=== PATIENT | female | born 1950 | race Caucasian/White ===

== ENCOUNTER 2018-05-17 10:20 | Observation (INO) ==
--- NOTE | 2018-05-17 10:31 | Emergency Department Note ---
Disposition Clinical Impression: Pulmonary embolism and infarction Disposition: Still a Patient Condition: Good General Adult HPI - General Chief complaint: ED Shortness of Breath/Dyspnea Stated complaint: SOB/left side pain/hurts to walk Time Seen by Provider: 05/17/18 10:25 Nursing Notes Reviewed: Yes Vital Signs Reviewed: Yes - History of Present Illness HPI Narrative: 68-year-old female presents emergency department with concern for 24 hour history of left-sided chest pain that is sharp, shortness of breath. Patient reports that she has never felt this way before. She denies any history of coronary artery disease. Reports that she does not have any history of DVT, unilateral leg swelling, recent travel, cancer, trauma, surgeries. Patient denies any history of hypertension, smoking, type 2 diabetes mellitus, hyperlipidemia, but does have a father who of coronary artery disease at age of 62. Patient denies any cough, fever, sputum production. Denies pain radiating anywhere. Has not taken anything to make it better. Pain Scale: 10 - Related Data Home Medications Medication Instructions Recorded Confirmed No Known Home Drugs 05/17/18 05/17/18 Allergies Allergy/AdvReac Type Severity Reaction Status Date / Time No Known Allergies Allergy Verified 05/17/18 10:48 All systems ED: reviewed and negative except as stated. Review of Systems: As Per HPI Constitutional: Denies: fever Cardiovascular: Reports: chest pain. Denies: palpitations Respiratory: Reports: dyspnea. Denies: cough, hemoptysis Gastrointestinal: Denies: abdominal pain, nausea, vomiting Genitourinary: Denies: urgency, dysuria, frequency, hematuria Musculoskeletal: Denies: back pain Integumentary: Denies: rash Neurological: Denies: numbness, paresthesias Past Medical History - Past Medical History Medical history: Reports: no medical history Psychiatric history: Reports: no psych history - Social History Smoking Status: Former smoker Smokeless Tobacco Status: No Alcohol use: Reports: none Drug use: Reports: none Physical Exam - General Limitations: no limitations General appearance: alert, in no apparent distress - Head Head exam: normocephalic - Eye Eye exam: Present: EOMI - ENT ENT exam: mucous membranes moist - Neck Neck exam: Present: trachea midline - Chest Chest inspection: Present: symmetric chest wall rise - Respiratory Respiratory exam: Present: normal lung sounds bilaterally. Absent: respiratory distress, accessory muscle use - Cardiovascular Cardiovascular exam: Present: regular rate, normal rhythm, normal heart sounds - Abdominal Exam Abdominal exam: Present: soft, Non-Tender. Absent: distention, guarding, rebound, rigidity - Extremities Exam Extremities exam: Present: normal capillary refill. Absent: pedal edema, calf tenderness - Back Exam Back exam: Present: full ROM - Neurological Exam Neurological exam: Present: alert, oriented X3 - Psychiatric Psychiatric exam: Present: normal affect, normal mood - Skin Skin exam: Present: warm, dry, intact, normal color. Absent: rash Course Vital Signs Temperature 98.0 F 05/17/18 10:24 Pulse Rate 98 05/17/18 10:24 Respiratory Rate 20 05/17/18 10:24 Blood Pressure 129/75 05/17/18 10:24 O2 Sat by Pulse Oximetry 93 05/17/18 10:24 Temperature 98.0 F 05/17/18 10:47 Pulse Rate 90 05/17/18 16:48 Respiratory Rate 22 05/17/18 16:48 Blood Pressure 118/66 05/17/18 16:48 O2 Sat by Pulse Oximetry 100 05/17/18 16:48 Oxygen Delivery Oxygen Delivery Nasal Cannula Medical Decision Making - [facility] Narrative Medical decision making narrative: 60-year-old female presents emergency department with concern for left-sided pleuritic chest pain for 24 hours. Patient is medically stable not in acute distress however, she does appear uncomfortable. Exam. Patient was given pain medication. EKG did not reveal any ischemic ST changes. Troponin was negative. BNP was not elevated. Kidney function was good. Chest revealed left basilar airspace disease and small pleural effusion. Obtain a CTA as patient had elevated d-dimer with pleuritic chest pain. This reveals left lower lobe pulmonary emboli with findings of left lower lobe infarct and small left pleural effusion. No evidence of right heart strain at this time as patient hemodynamically stable, troponins negative, BNP is within normal limits. Patient has no history of bleeding disorders. We started her on heparin. Discussed the findings with her at bedside. She was still hemodynamically stable. She requests more pain medication. We have provided this. So the hospitalist who agrees to accept patient for admission. Patient not in any acute distress at the time. Chest X-Ray 05/17/18 10:29 IMPRESSION: Left basilar airspace disease and small pleural effusion which may be secondary to pneumonia. D/ / Te Buckley MD / Te Buckley MD Interpreting Provider: Te Buckley MD Chest CTA 05/17/18 13:25 IMPRESSION: Left lower lobe pulmonary emboli with findings of left lower lobe infarct and small left pleural effusion D/ / Fabio Mariscal MD / Fabio Mariscal MD Interpreting Provider: Fabio Mariscal MD - Lab Data Result diagrams: 05/17/18 16:54 05/17/18 10:46 Lab Results 05/17/18 05/17/18 05/17/18 Range/Units 10:46 10:46 10:46 WBC 11.0 (4.3-11.1) K/mcL RBC 4.13 (3.82-4.97) M/mcL Hgb 11.9 (11.5-15.4) g/dL Hct 36.9 (35.3-44.9) % MCV 89.3 (83.0-100.0) fL MCH 28.8 (28.0-33.3) pg MCHC 32.2 (31.6-35.5) g/dL RDW 13.8 (11.5-14.5) % Plt Count 144 (140-400) K/mcL MPV 10.0 (9.4-12.4) fL Immature Gran % 0.4 (0-4) % Seg Neutrophils % 75.3 % Lymphocytes % 13.1 % Monocytes % 10.8 % Eosinophils % 0.1 % Basophils % 0.3 % Neutrophils # 8.3 (1.6-8.9) K/mcL Lymphocytes # 1.4 (0.6-4.6) K/mcL Monocytes # 1.2 (0.0-1.3) K/mcL Eosinophils # 0.0 (0.0-0.6) K/mcL Basophils # 0.0 (0.0-0.2) K/mcL PT (9.4-12.1) Seconds INR D-Dimer (0-500) ng/mLFEU Heparin Anti-Xa, Unfract (0.30-0.70) IU/mL Sodium 137 (136-145) mEq/L Potassium 3.7 (3.5-5.1) mEq/L Chloride 105 (98-107) mEq/L Carbon Dioxide 25 (23-29) mEq/L BUN 20 (8-23) mg/dL Creatinine 1.01 (0.60-1.20) mg/dL Est GFR ( Amer) > 60 (> 60) Est GFR (Non-Af Amer) 55 L (> 60) BUN/Creatinine Ratio 20 (6-26) Glucose 125 H (70-105) mg/dL Calculated Osmolality 288 (280-300) Calcium 9.6 (8.6-10.3) mg/dL Troponin I < 0.03 (< 0.04) ng/mL B-Natriuretic Peptide 22 (Less than 100) pg/mL 05/17/18 05/17/18 05/17/18 Range/Units 10:46 16:54 16:54 WBC 11.1 (4.3-11.1) K/mcL RBC 4.16 (3.82-4.97) M/mcL Hgb 12.1 (11.5-15.4) g/dL Hct 37.5 (35.3-44.9) % MCV 90.1 (83.0-100.0) fL MCH 29.1 (28.0-33.3) pg MCHC 32.3 (31.6-35.5) g/dL RDW 13.6 (11.5-14.5) % Plt Count 149 (140-400) K/mcL MPV 10.2 (9.4-12.4) fL Immature Gran % (0-4) % Seg Neutrophils % % Lymphocytes % % Monocytes % % Eosinophils % % Basophils % % Neutrophils # (1.6-8.9) K/mcL Lymphocytes # (0.6-4.6) K/mcL Monocytes # (0.0-1.3) K/mcL Eosinophils # (0.0-0.6) K/mcL Basophils # (0.0-0.2) K/mcL PT 12.3 H (9.4-12.1) Seconds INR 1.1 D-Dimer 2103 H (0-500) ng/mLFEU Heparin Anti-Xa, Unfract 0.00 L (0.30-0.70) IU/mL Sodium (136-145) mEq/L Potassium (3.5-5.1) mEq/L Chloride (98-107) mEq/L Carbon Dioxide (23-29) mEq/L BUN (8-23) mg/dL Creatinine (0.60-1.20) mg/dL Est GFR ( Amer) (> 60) Est GFR (Non-Af Amer) (> 60) BUN/Creatinine Ratio (6-26) Glucose (70-105) mg/dL Calculated Osmolality (280-300) Calcium (8.6-10.3) mg/dL Troponin I (< 0.04) ng/mL B-Natriuretic Peptide (Less than 100) pg/mL - EKG Data EKG #1 EKG attestation: Yes I reviewed and interpreted this EKG. EKG results narrative: 10:43 Heart rate 90 bpm, appearing 148 ms, QRS duration 86 segs, QT [address] changes on this EKG.
[2018-05-17] MEDS ORDERED: Aspirin 81 MG TAB.CHEW PO STA (10:42)
[2018-05-17] MEDS ORDERED: *HR* FentaNYL (PF) 100 MCG/2 ML VIAL IVP ONE ×2 (10:42→13:49)
[2018-05-17 11:02] LABS: Basophils % 0.3 %; Eosinophils % 0.1 %; Hematocrit 36.9 % (35.3-44.9); Hemoglobin 11.9 g/dL (11.5-15.4); Immature Granulocytes % 0.4 % (0-4); Lymphocytes # 1.4 K/mcL (0.6-4.6); Lymphocytes % 13.1 %; Mean Corpuscular HGB Conc 32.2 g/dL (31.6-35.5); Mean Corpuscular Hemoglobin 28.8 pg (28.0-33.3); Mean Corpuscular Volume 89.3 fL (83.0-100.0); Monocytes # 1.2 K/mcL (0.0-1.3); Monocytes % 10.8 %; Neutrophils # 8.3 K/mcL (1.6-8.9); Platelet Count 144 K/mcL (140-400); Red Blood Count 4.13 M/mcL (3.82-4.97); Red Cell Distribution Width 13.8 % (11.5-14.5); Segmented Neutrophils % 75.3 %
[2018-05-17 11:23] LABS: BUN/Creatinine Ratio 20 (6-26); Blood Urea Nitrogen 20 mg/dL (8-23); Calcium 9.6 mg/dL (8.6-10.3); Carbon Dioxide 25 mEq/L (23-29); Chloride 105 mEq/L (98-107); Glucose 125 mg/dL (70-105); Osmolality,Calculated 288 (280-300); Potassium 3.7 mEq/L (3.5-5.1); Sodium 137 mEq/L (136-145); eGFR For Non-African Americans 55 (> 60)
[2018-05-17 11:24] LABS: Troponin I < 0.03 ng/mL (< 0.04)
[2018-05-17] MEDS ORDERED: Isovue-370 500 ML INFUS..BTL IV ONE (13:25)
--- NOTE | 2018-05-17 13:51 | Emergency Department Note ---
Disposition Clinical Impression: Chest wall pain, Pulmonary embolism and infarction Disposition: Admitted As Inpatient General Adult HPI - General Chief complaint: ED Shortness of Breath/Dyspnea Stated complaint: SOB/left side pain/hurts to walk Time Seen by Provider: 05/17/18 10:25 Source: patient Limitations: no limitations - History of Present Illness Pain Scale: 8 - Related Data Previous Rx's Medication Instructions Recorded Cyclobenzaprine [Flexeril] 10 mg PO HS PRN #10 tablet 10/17/16 HYDROcodone/Acet 5/325 mg [[place] 1 tab PO Q6H PRN #10 tab 10/17/16 5-325 mg] Naproxen [Naprosyn] 500 mg PO BID PRN #20 tablet 10/17/16 Allergies Allergy/AdvReac Type Severity Reaction Status Date / Time No Known Allergies Allergy Verified 05/17/18 10:48 Past Medical History - Past Medical History Medical history: Reports: no medical history Psychiatric history: Reports: no psych history 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 - Social History Smoking Status: Former smoker Smokeless Tobacco Status: No Alcohol use: Reports: none Drug use: Reports: none Physical Exam - General Limitations: no limitations General appearance: alert, in no apparent distress Course Vital Signs Temperature 98.0 F 05/17/18 10:24 Pulse Rate 98 05/17/18 10:24 Respiratory Rate 20 05/17/18 10:24 Blood Pressure 129/75 05/17/18 10:24 O2 Sat by Pulse Oximetry 93 05/17/18 10:24 Temperature 98.0 F 05/17/18 10:47 Pulse Rate 90 05/17/18 16:48 Respiratory Rate 22 05/17/18 16:48 Blood Pressure 118/66 05/17/18 16:48 O2 Sat by Pulse Oximetry 100 05/17/18 16:48 Oxygen Delivery Oxygen Delivery Nasal Cannula Medical Decision Making - Medical Records Medical records reviewed: Yes I reviewed the patient's medical records. - Lab Data Lab results reviewed: Yes I reviewed the patient's lab results. Result diagrams: 05/17/18 16:54 05/17/18 10:46 Lab Results 05/17/18 05/17/18 05/17/18 Range/Units 10:46 10:46 10:46 WBC 11.0 (4.3-11.1) K/mcL RBC 4.13 (3.82-4.97) M/mcL Hgb 11.9 (11.5-15.4) g/dL Hct 36.9 (35.3-44.9) % MCV 89.3 (83.0-100.0) fL MCH 28.8 (28.0-33.3) pg MCHC 32.2 (31.6-35.5) g/dL RDW 13.8 (11.5-14.5) % Plt Count 144 (140-400) K/mcL MPV 10.0 (9.4-12.4) fL Immature Gran % 0.4 (0-4) % Seg Neutrophils % 75.3 % Lymphocytes % 13.1 % Monocytes % 10.8 % Eosinophils % 0.1 % Basophils % 0.3 % Neutrophils # 8.3 (1.6-8.9) K/mcL Lymphocytes # 1.4 (0.6-4.6) K/mcL Monocytes # 1.2 (0.0-1.3) K/mcL Eosinophils # 0.0 (0.0-0.6) K/mcL Basophils # 0.0 (0.0-0.2) K/mcL PT (9.4-12.1) Seconds INR D-Dimer (0-500) ng/mLFEU Heparin Anti-Xa, Unfract (0.30-0.70) IU/mL Sodium 137 (136-145) mEq/L Potassium 3.7 (3.5-5.1) mEq/L Chloride 105 (98-107) mEq/L Carbon Dioxide 25 (23-29) mEq/L BUN 20 (8-23) mg/dL Creatinine 1.01 (0.60-1.20) mg/dL Est GFR ( Amer) > 60 (> 60) Est GFR (Non-Af Amer) 55 L (> 60) BUN/Creatinine Ratio 20 (6-26) Glucose 125 H (70-105) mg/dL Calculated Osmolality 288 (280-300) Calcium 9.6 (8.6-10.3) mg/dL Troponin I < 0.03 (< 0.04) ng/mL B-Natriuretic Peptide 22 (Less than 100) pg/mL 05/17/18 05/17/18 05/17/18 Range/Units 10:46 16:54 16:54 WBC 11.1 (4.3-11.1) K/mcL RBC 4.16 (3.82-4.97) M/mcL Hgb 12.1 (11.5-15.4) g/dL Hct 37.5 (35.3-44.9) % MCV 90.1 (83.0-100.0) fL MCH 29.1 (28.0-33.3) pg MCHC 32.3 (31.6-35.5) g/dL RDW 13.6 (11.5-14.5) % Plt Count 149 (140-400) K/mcL MPV 10.2 (9.4-12.4) fL Immature Gran % (0-4) % Seg Neutrophils % % Lymphocytes % % Monocytes % % Eosinophils % % Basophils % % Neutrophils # (1.6-8.9) K/mcL Lymphocytes # (0.6-4.6) K/mcL Monocytes # (0.0-1.3) K/mcL Eosinophils # (0.0-0.6) K/mcL Basophils # (0.0-0.2) K/mcL PT 12.3 H (9.4-12.1) Seconds INR 1.1 D-Dimer 2103 H (0-500) ng/mLFEU Heparin Anti-Xa, Unfract 0.00 L (0.30-0.70) IU/mL Sodium (136-145) mEq/L Potassium (3.5-5.1) mEq/L Chloride (98-107) mEq/L Carbon Dioxide (23-29) mEq/L BUN (8-23) mg/dL Creatinine (0.60-1.20) mg/dL Est GFR ( Amer) (> 60) Est GFR (Non-Af Amer) (> 60) BUN/Creatinine Ratio (6-26) Glucose (70-105) mg/dL Calculated Osmolality (280-300) Calcium (8.6-10.3) mg/dL Troponin I (< 0.04) ng/mL B-Natriuretic Peptide (Less than 100) pg/mL - Radiology Data Radiology results reviewed: Yes I reviewed the patient's radiology results. Critical Care Time Critical Care Time: No Attestation Statement - Attestation Attestation: I examined this patient and my medical decision-making was reviewed with the Resident Physician. I agree with the documented findings, disposition and treatment plan as described except to the extent set forth below. 68-year-old female presented to [facility] for left lateral chest pain. She denies any history of coronary disease. No lung history. She denies any recent long travels in a car plane. No history of pulmonary embolus. Pain is isolated to the left chest wall in the left lateral ribs region. No fevers. No lower leg pain or swelling. Her d-dimer was elevated. We have ordered a CTA chest. Remaining lab work is unremarkable. EKG showed no acute findings. Disposition pending based on her CTA report.
--- NOTE | 2018-05-17 14:18 | Electrocardiograph Report ---
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
[2018-05-17] MEDS ORDERED: *HR* HYDROmorphone (PF) 1 MG/ML SYRINGE IVP ONE (16:26)
[2018-05-17] MEDS ORDERED: *HR* Heparin 5,000 UNIT/ML VIAL IVP PRN ×2 (16:27)
[2018-05-17] MEDS ORDERED: *HR* Heparin 5,000 UNIT/ML VIAL IVP ONE (16:27)
[2018-05-17] MEDS ORDERED: Heparin 25,000 UNIT/500 ML D5W 25,000 UNIT/500 ML BAG IVC SCH (16:30)
[2018-05-17] MEDS ORDERED: Naloxone 0.4 MG/ML INJ IVP PRN (16:51)
[2018-05-17 17:06] LABS: Hematocrit 37.5 % (35.3-44.9); Hemoglobin 12.1 g/dL (11.5-15.4); Mean Corpuscular HGB Conc 32.3 g/dL (31.6-35.5); Mean Corpuscular Hemoglobin 29.1 pg (28.0-33.3); Mean Corpuscular Volume 90.1 fL (83.0-100.0); Mean Platelet Volume 10.2 fL (9.4-12.4); Platelet Count 149 K/mcL (140-400); Red Blood Count 4.16 M/mcL (3.82-4.97); Red Cell Distribution Width 13.6 % (11.5-14.5)
[2018-05-17 17:18] LABS: INR 1.1; Prothrombin Time 12.3 Seconds (9.4-12.1)
--- NOTE | 2018-05-17 17:39 | Internal Med History&Physical ---
Date of Encounter: 05/17/18 Time of Encounter: 17:00 Internal Medicine - H&P: HPI Chief complaint: left sided chest pain and shortness of breath History of present illness: Ms. Tee is a 68 year old female with no significant past medical history presenting with sudden onset left sided chest pain starting about 2 nights ago in bed. When she woke up the next day, she says she was very short of breath and had worsening left sided pain. She also complains of chills. Denies any calf pain. Denies any recent travel. Denies any fevers or any other acute symptoms In the ER, a ct chest showed a left sided PE and small left sided pleural effusion and airspace disease. She is being admitted for further management Past Med Surg Social Fam HX - Past Medical History Medical history: no medical history Psychiatric history: no psych history - Past Surgical History Additional surgical history: right hip replacement - Social History Smoking Status: Former smoker Smokeless Tobacco Status: No Alcohol use: none Drug use: none Internal Medicine - H&P: Meds No Known Home Drugs 05/17/18 [History] Allergy/AdvReac Type Severity Reaction Status Date / Time No Known Allergies Allergy Verified 05/17/18 10:48 All Systems PM: A 10-system review of systems was performed and is negative for pertinent findings except as documented above in the HPI. - Constitutional Constitutional: chills, no fever(s), no night sweats - EENT Eyes: no change in vision, no discharge, no pain, no photophobia Ears: no ear discharge, no ear pain, no tinnitus Nose, mouth and throat: no dysphagia, no nasal discharge, no neck pain, no sore throat - Cardiovascular Cardiovascular ROS IM: chest pain, palpitations, no diaphoresis, no dyspnea, no lightheadedness, no syncope - Respiratory Respiratory: no cough, no dyspnea, no wheezing, no excessive phlegm production - Gastrointestinal Gastrointestinal: no abdominal pain, no diarrhea, no hematemesis, no hematochezia, no melena, no nausea, no vomiting - Genitourinary Genitourinary: no change in urinary stream, no dysuria, no flank pain, no hematuria - Musculoskeletal Musculoskeletal ROS IM: no numbness, no tingling - Integumentary Integumentary IM: no rash, no unusual bruising - Neurological Neurological ROS: no confusion, no convulsions, no focal weakness, no numbness, no tingling, no tremor(s) - Hematologic/Lymphatic Hematologic/Lymphatic: no easy bruising - Constitutional Vitals: Temp Pulse Resp BP Pulse Ox 98.0 F 90 22 118/66 100 05/17/18 10:47 05/17/18 16:48 05/17/18 16:48 05/17/18 16:48 05/17/18 16:48 Exam: NAD - Head Head exam: Present: atraumatic, normocephalic - Eye Eye exam: Present: PERRL, conjuntiva pink, sclera anicteric Pupils: Present: PERRL - Neck Neck exam general surgery: Present: supple, trachea midline. Absent: lymphadenopathy - Respiratory Respiratory exam: Present: CTAB. Absent: accessory muscle use, rales, rhonchi, wheezes - Cardiovascular Cardiovascular exam: Present: RRR, +S1, +S2. Absent: diastolic murmur, gallop, rubs, systolic murmur - GI/Abdominal GI/Abdominal exam: Present: normal bowel sounds, soft, no peritoneal signs. Absent: distended, tenderness - Extremities Exam Extremities exam: Present: warm, radial pulses palpable and symmetrical. Absent: calf tenderness, cyanotic, pedal edema - Neurological Exam Neurological exam: Present: CN II-XII intact, oriented X3, no focal deficits. Absent: pronater drift, facial droop, speech deficit - Skin Skin exam: Present: dry, intact Internal Med - H&P Results - Labs CBC & Chem 7: 05/17/18 16:54 05/17/18 10:46 Labs: Short CBC 05/17/18 05/17/18 Range/Units 10:46 16:54 WBC 11.0 11.1 (4.3-11.1) K/mcL Hgb 11.9 12.1 (11.5-15.4) g/dL Hct 36.9 37.5 (35.3-44.9) % Plt Count 144 149 (140-400) K/mcL Neutrophils # 8.3 (1.6-8.9) K/mcL BMP 05/17/18 10:46 Sodium 137 Potassium 3.7 Chloride 105 Carbon Dioxide 25 BUN 20 Creatinine 1.01 Glucose 125 H Calcium 9.6 Cardiac Enzymes 05/17/18 Range/Units 10:46 Troponin I < 0.03 (< 0.04) ng/mL - Impressions ITS Impressions Chest X-Ray 05/17/18 10:29 IMPRESSION: Left basilar airspace disease and small pleural effusion which may be secondary to pneumonia. D/ / Te Buckley MD / Te Buckley MD Interpreting Provider: Te Buckley MD Chest CTA 05/17/18 13:25 IMPRESSION: Left lower lobe pulmonary emboli with findings of left lower lobe infarct and small left pleural effusion D/ / Fabio Mariscal MD / Fabio Mariscal MD Interpreting Provider: Fabio Mariscal MD - Assessment and plan (1) Pulmonary embolism and infarction Current Visit: Yes Status: Acute Assessment and plan: Pt comes in with shortness of breath and left sided chest pain CT chest shows left sided pulmonary emboli. will start on heparin drip and transition to xarelto (2) Community acquired bacterial pneumonia Current Visit: Yes Status: Acute Assessment and plan: CT chest shows small pleural effusion and left lung airspace disease Will start on IV levaquin. Obtain blood cultures and urine strep and legionella antigen (3) DVT prophylaxis Current Visit: Yes Status: Acute Assessment and plan: On heparin drip - Time Spent With Patient Total time spent is greater than 50% in coordination of care (as documented) at patient's floor/unit and/or counseling patient:
[2018-05-17] MEDS ORDERED: Levofloxacin 750 MG/150 ML 750 MG/150 ML BAG IVPB SCH (18:00)
[2018-05-17] MEDS: *HR* HYDROcodone/Acet 5/325 mg TABLET PO PRN (19:01)
[2018-05-17] MEDS: *HR* Rivaroxaban 15 MG TABLET PO SCH (21:04)
[2018-05-18] MEDS ORDERED: *HR* OxyCODONE Immed Rel 5 MG TABLET PO PRN (00:01)
[2018-05-18] MEDS ORDERED: Acetaminophen 325 MG TABLET PO PRN (00:01)
[2018-05-18 04:08] LABS: Hematocrit 34.2 % (35.3-44.9); Hemoglobin 10.9 g/dL (11.5-15.4); Mean Corpuscular HGB Conc 31.9 g/dL (31.6-35.5); Mean Corpuscular Hemoglobin 28.5 pg (28.0-33.3); Mean Corpuscular Volume 89.3 fL (83.0-100.0); Mean Platelet Volume 10.6 fL (9.4-12.4); Platelet Count 151 K/mcL (140-400); Red Blood Count 3.83 M/mcL (3.82-4.97); Red Cell Distribution Width 13.6 % (11.5-14.5)
[2018-05-18 04:24] LABS: BUN/Creatinine Ratio 18 (6-26); Blood Urea Nitrogen 19 mg/dL (8-23); Calcium 9.6 mg/dL (8.6-10.3); Carbon Dioxide 23 mEq/L (23-29); Chloride 104 mEq/L (98-107); Glucose 117 mg/dL (70-105); Osmolality,Calculated 285 (280-300); Phosphorous 2.4 mg/dL (2.7-4.5); Potassium 4.3 mEq/L (3.5-5.1); Sodium 136 mEq/L (136-145); eGFR For Non-African Americans 53 (> 60)
[2018-05-18] MEDS: *HR* HYDROcodone/Acet 5/325 mg TABLET PO PRN ×2 (05:11→12:31)
[2018-05-18] MEDS: *HR* Rivaroxaban 15 MG TABLET PO SCH (08:29)
--- NOTE | 2018-05-18 08:50 | Discharge Summary ---
Orders not resulted at time of discharge: Pending orders 05/17/18 17:41 Factor V Leiden Routine 05/17/18 17:49 Legionella Antigen [RM] Routine Streptococcal pneumoniae urin antigen [S. Pneumoniae Antigen] [RM] Routine 05/17/18 18:59 Culture,Blood [] Routine Date of Encounter: 05/18/18 Time of Encounter: 08:45 - Discharge Diagnosis (1) Pulmonary embolism and infarction Priority: Primary Status: Acute Assessment and Plan: 68 year old female with no significant past medical history presenting with sudden onset left sided chest pain starting about 2 nights ago in bed. When she woke up the next day, she says she was very short of breath and had worsening left sided pain. She also complains of chills. Denies any calf pain. Denies any recent travel. Denies any fevers or any other acute symptoms In the ER, a ct chest showed a left sided PE and small left sided pleural effusion and airspace disease She was assessed with acute PE with CT chest showing left sided pulmonary emboli . She was started on a heparin drip and transitioned to xarelto po. She was given a one month supply of xarelto and will follow up with her PCP. She was counseled on the need for at least 3 months of anticoagulation. She also had a pneumonia and was treated with levaquin. She was discharged in a stable condition (2) Community acquired bacterial pneumonia Priority: Primary Status: Acute (3) DVT prophylaxis Priority: Primary Status: Acute Hospital course: Ms. Tee is a 68 year old female - Time Spent with Patient Total time spent providing and/or coordinating discharge services: - Discharge Medications Prescriptions: HYDROcodone/Acet 5/325 mg [[place] 5-325 mg] 1 tab PO Q6H PRN 4 Days #12 tablet PRN Reason: Chest Pain levoFLOXacin [Levaquin] 750 mg PO DAILY #2 tablet Rivaroxaban [Xarelto] 1 dose PO AD 30 Days #1 pack Home Medications: HYDROcodone/Acet 5/325 mg [[place] 5-325 mg] 1 tab PO Q6H PRN 4 Days #12 tablet 05/18/18 [Rx] Rivaroxaban [Xarelto] 1 dose PO AD 30 Days #1 pack 05/18/18 [Rx] levoFLOXacin [Levaquin] 750 mg PO DAILY #2 tablet 05/18/18 [Rx] Allergies/Adverse Reactions: Allergy/AdvReac Type Severity Reaction Status Date / Time No Known Allergies Allergy Verified 05/17/18 10:48 Date of admission: 05/17/18 16:58 Primary care physician: Ole Pollard - Constitutional Vitals: Temp Pulse Resp BP Pulse Ox 98.6 F 83 17 102/56 96 05/18/18 07:44 05/18/18 07:44 05/18/18 07:44 05/18/18 07:44 05/18/18 07:44 Exam: Gen - Awake, alert, oriented x 3, no acute distress HEENT - NCAT, PERRLA, EOMI, hearing grossly intact, oropharynx benign CV - RRR, normal S1 and S2, no M/R/G, no BLE edema Resp - Normal WOB, CTAB, no W/R/R GI - Soft, NT/ND, no masses, normal bowel sounds, Skin - Warm, dry, no rashes/lesions/ulcers Psych - Normal mood and affect, no depression or anxiety - Patient Status Disposition: Home, Self-Care Condition: Good - Discharge Instructions Instructions: Pulmonary Embolism (DC), Pneumonia (DC) Follow Up With: Marley Guadalupe [employer] [Advanced Practice Nurse] - 05/22/18 3:10 pm (patient needs to be there a half hour early with insurance card )
[2018-05-18 11:53] VITALS: BP 122/62
[2018-05-22 00:49] LABS: FACV Specimen WHOLE BLOOD
[2018-05-22 14:24] LABS: Fac V Leiden R506Q Mut Result NEGATIVE
== END 2018-05-18 13:59 | disposition home or self-care (01) ==
LOC: EMEROOARM 10:20 → 2NENU 10:20
PROVIDERS: ADMIT Internal Medicine; ATTEND Internal Medicine

== ENCOUNTER 2019-08-31 18:24 | Inpatient (IN) ==
[2019-08-31 19:55] LABS: Basophils % 0.4 %; Eosinophils # 0.2 K/mcL (0.0-0.6); Eosinophils % 2.2 %; Hemoglobin 11.4 g/dL (11.5-15.4); Immature Granulocytes % 0.4 % (0-4); Lymphocytes # 1.3 K/mcL (0.6-4.6); Lymphocytes % 19.7 %; Mean Corpuscular HGB Conc 31.7 g/dL (31.6-35.5); Mean Corpuscular Hemoglobin 28.5 pg (28.0-33.3); Monocytes # 0.6 K/mcL (0.0-1.3); Monocytes % 8.5 %; Neutrophils # 4.6 K/mcL (1.6-8.9); Platelet Count 288 K/mcL (140-400); Red Cell Distribution Width 13.7 % (11.5-14.5); Segmented Neutrophils % 68.8 %; White Blood Count 6.7 K/mcL (4.3-11.1)
[2019-08-31 20:02] LABS: Prothrombin Time 11.2 Seconds (9.4-12.1)
[2019-08-31 20:04] LABS: Activated Partial Thrombo Time 34.3 Seconds (26.0-36.0)
[2019-08-31] MEDS ORDERED: Isovue-370 500 ML BOTTLE IVP ONE (20:36)
[2019-08-31] MEDS ORDERED: 0.9 % Sodium Chloride 1,000 ML IVC ONE (23:31)
[2019-08-31] MEDS ORDERED: *HR* Enoxaparin 80 MG/0.8 ML SYRINGE SQ STA (23:47)
[2019-09-01] MEDS ORDERED: Naloxone 0.4 MG/ML INJ IVP PRN (02:03)
[2019-09-01] MEDS ORDERED: Melatonin 3 MG TABLET PO PRN (03:01)
[2019-09-01 04:51] LABS: Hematocrit 33.5 % (35.3-44.9); Hemoglobin 10.6 g/dL (11.5-15.4); Mean Corpuscular HGB Conc 31.6 g/dL (31.6-35.5); Mean Corpuscular Hemoglobin 28.5 pg (28.0-33.3); Mean Corpuscular Volume 90.1 fL (83.0-100.0); Mean Platelet Volume 9.3 fL (9.4-12.4); Platelet Count 296 K/mcL (140-400); Red Blood Count 3.72 M/mcL (3.82-4.97); Red Cell Distribution Width 13.9 % (11.5-14.5); White Blood Count 6.9 K/mcL (4.3-11.1)
[2019-09-01 05:11] LABS: BUN/Creatinine Ratio 14 (6-26); Blood Urea Nitrogen 14 mg/dL (8-23); Calcium 9.3 mg/dL (8.6-10.3); Carbon Dioxide 26 mEq/L (23-29); Chloride 107 mEq/L (98-107); Glucose 95 mg/dL (70-105); Osmolality,Calculated 284 (280-300); Phosphorous 2.9 mg/dL (2.7-4.5); Sodium 137 mEq/L (136-145); eGFR For African Americans > 60 (> 60); eGFR For Non-African Americans 55 (> 60)
[2019-09-01] MEDS ORDERED: Ipratropium/Albuterol Neb 3 ML IH PRN (07:44)
[2019-09-01] MEDS: *HR* Enoxaparin 100 MG/ML SYRINGE SQ SCH ×2 (09:42→21:05)
[2019-09-01] MEDS: *HR* HYDROcodone/Acet 5/325 mg TABLET PO PRN ×2 (09:42→21:04)
[2019-09-01] MEDS ORDERED: Warfarin perPT PO SCH (18:00)
[2019-09-01] MEDS ORDERED: *HR* Warfarin 5 MG TABLET PO ONE (18:00)
[2019-09-02 01:37] LABS: Basophils % 0.6 %; Eosinophils # 0.1 K/mcL (0.0-0.6); Eosinophils % 1.7 %; Hematocrit 32.1 % (35.3-44.9); Hemoglobin 10.2 g/dL (11.5-15.4); Immature Granulocytes % 0.4 % (0-4); Lymphocytes # 2.3 K/mcL (0.6-4.6); Lymphocytes % 32.1 %; Mean Corpuscular HGB Conc 31.8 g/dL (31.6-35.5); Mean Corpuscular Volume 91.2 fL (83.0-100.0); Mean Platelet Volume 9.3 fL (9.4-12.4); Monocytes # 0.7 K/mcL (0.0-1.3); Monocytes % 10.1 %; Neutrophils # 3.9 K/mcL (1.6-8.9); Platelet Count 274 K/mcL (140-400); Red Blood Count 3.52 M/mcL (3.82-4.97); Red Cell Distribution Width 14.3 % (11.5-14.5); Segmented Neutrophils % 55.1 %; White Blood Count 7.1 K/mcL (4.3-11.1)
[2019-09-02 01:42] LABS: INR 1.2; Prothrombin Time 13.1 Seconds (9.4-12.1)
[2019-09-02 01:59] LABS: Calcium 9.4 mg/dL (8.6-10.3); Magnesium 2.1 mg/dL (1.6-2.6); Phosphorous 3.2 mg/dL (2.7-4.5); Potassium 4.1 mEq/L (3.5-5.1)
[2019-09-02] MEDS: *HR* HYDROcodone/Acet 5/325 mg TABLET PO PRN ×2 (05:28→13:52)
[2019-09-02] MEDS: *HR* Enoxaparin 100 MG/ML SYRINGE SQ SCH ×2 (05:29→17:42)
[2019-09-02] MEDS ORDERED: Folic Acid 1 MG TABLET PO SCH (09:00)
[2019-09-02] MEDS ORDERED: Cholecalciferol (D-3) 1,000 UNIT (25MCG) TABLET PO SCH (09:00)
[2019-09-02] MEDS ORDERED: Magnesium Oxide 400 MG TABLET PO SCH (09:00)
[2019-09-02 11:16] VITALS: BP 125/73
[2019-09-02] MEDS ORDERED: *HR* Warfarin 5 MG TABLET PO ONE (18:00)
[2019-09-08] MEDS ORDERED: *HR* Methotrexate 2.5 MG TABLET PO SCH ×3 (09:00→21:00)
== END 2019-09-02 16:25 | disposition home or self-care (01) | DRG 299 ==
LOC: EMEROOARM 18:24 → 2ANU 18:24 → SUATTDRO 09-02 10:00
PROVIDERS: ADMIT Internal Medicine; ATTEND Internal Medicine